=== PATIENT | female | born 1995 | race Caucasian/White ===

== ENCOUNTER → 2017-12-02 | Outpatient (CLI) | payer BC ==
[~2017-12-02] VITALS: Ht 170.2 cm; Wt 72.6 kg
[~2017-12-02] MED LIST: SINCALIDE 1.45 MCG in IV NORMAL SALINE 50ML 30 ML IV ONE
--- NOTE | 2017-12-02 11:39 | RAD ---
Radionuclide hepatobiliary scan with gallbladder ejection fraction, 12/02/2017: HISTORY: Abdominal pain and nausea Following IV injection of 5.5 mCi of technetium 99 M Choletec there was prompt uptake of the radionuclide from the blood stream by the liver. There is prompt appearance of activity in the bile ducts and small bowel. Gallbladder activity developed at approximately 30 minutes, although difficult to separate from duodenal activity. Additional imaging was then performed following IV injection of 1.5 mcg of cholecystokinin. The gallbladder ejection fraction was calculated at 41 percent. 30-50 percent is considered to be the borderline low range. IMPRESSION: 1. Patent cystic and common bile ducts. 2. The gallbladder ejection fraction is 41 percent. Electronically signed by: Bennie Garcia MD (12/02/2017 11:35 AM) [facility]
== END | disposition home or self-care (01) ==
LOC: NM 07:42
PROVIDERS: ATTEND Physician Assistant
DX: R10.84 Generalized abdominal pain (principal); K59.00 Constipation, unspecified; R11.0 Nausea
CPT/HCPCS: 78226; 96374; 96375; A9537; J2805

== ENCOUNTER → 2017-12-02 | Outpatient (CLI) | payer BC ==
[~2017-12-02] MED LIST changes: +IOHEXOL 240 MG/ML 50ML VIAL. PO ONE; +IOHEXOL 300 MG/ML 75 ML VIAL. IV ONE; -SINCALIDE 1.45 MCG in IV NORMAL SALINE 50ML 30 ML IV ONE
[2017-12-02 16:53] LABS: BASO % 0 % (0-3); EOS # 0.1 x10^3/uL (0.0-0.7); EOS % 2 % (0-3); HEMATOCRIT 43.1 % (36.0-47.0); HEMOGLOBIN 14.5 g/dL (12.0-15.5); LYMPH # 2.2 x10^3/uL (1.0-4.8); LYMPH % 31 % (24-48); MEAN CORPUSCULAR HEMOGLOBIN 29 pg (25-35); MEAN CORPUSCULAR HGB CONC 34 g/dL (31-37); MEAN CORPUSCULAR VOLUME 86 fL (79-100); MONO # 0.5 x10^3/uL (0.0-1.1); MONO % 7 % (0-9); NEUT # 4.2 x10^3uL (1.8-7.7); NEUT % 60 % (31-73); PLATELET COUNT 323 x10^3/uL (140-400); RED BLOOD COUNT 4.99 x10^6/uL (3.50-5.40); RED CELL DISTRIBUTION WIDTH 13.6 % (11.5-14.5); WHITE BLOOD COUNT 7.1 x10^3/uL (4.0-11.0)
[2017-12-02 17:08] LABS: ALBUMIN 3.4 g/dL (3.4-5.0); ALBUMIN/GLOBULIN RATIO 0.8 (1.0-1.7); CALCIUM 9.2 mg/dL (8.5-10.1); CREATININE 0.8 mg/dL (0.6-1.0); GFR 90.5; POTASSIUM 4.2 mmol/L (3.5-5.1); TOTAL BILIRUBIN 0.3 mg/dL (0.2-1.0); TOTAL PROTEIN 7.8 g/dL (6.4-8.2)
--- NOTE | 2017-12-02 18:43 | RAD ---
CT scan of the abdomen and pelvis with contrast December 02, 2017 CLINICAL HISTORY: Right-sided abdominal pain with nausea and constipation for one week. TECHNIQUE: After the oral and intravenous administration of contrast, contiguous, 5 mm axial sections were obtained through the abdomen and pelvis. 75 cc of Omnipaque 300 were administered intravenously during this examination. One or more of the following individualized dose reduction techniques were utilized for this study: 1. Automated exposure control. 2. Adjustment of the mA and/or kV according to patient size. 3. Use of iterative reconstruction technique. FINDINGS: Images through the lung bases are within normal limits. The liver, spleen, pancreas, adrenal glands and kidneys are within normal limits. The abdominal aorta tapers normally. The gallbladder is contracted. No free fluid or free air is seen within the abdomen. Air and stool is seen throughout the colon. There is no evidence of bowel obstruction. The appendix is well-visualized and is within normal limits. Images through the pelvis demonstrate the urinary bladder distended with urine. A 3.2 cm oval-shaped low-attenuation structure is seen in the right ovary. This likely represents a right ovarian cyst. No free fluid is seen. Very mild S-shaped curvature of the thoracolumbar spine is noted. IMPRESSION: 3.2 cm probable right ovarian cyst. Electronically signed by: Gustavo Griffith MD (12/02/2017 6:40 PM) [facility]
== END | disposition home or self-care (01) ==
LOC: LAB 16:30
PROVIDERS: ATTEND Family Medicine
DX: K59.00 Constipation, unspecified (principal); R10.84 Generalized abdominal pain; R11.0 Nausea
CPT/HCPCS: 36415; 74177; 80053; 82150; 83690; 85025; Q9966; Q9967